=== PATIENT | female | born 2000 | race Caucasian/White ===

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

== ENCOUNTER 2019-04-02 19:16 | Outpatient (CLI) | payer BC ==
--- NOTE | 2019-04-02 23:57 | Ultrasound Report ---
Reason: PELVIC PAIN Procedure Date: 04/02/2019 Accession Number: [id number] / [id number] Procedure: US - Pelvic w/Transvaginal CPT Code: Final Report FULL RESULT: EXAM: PELVIC ULTRASOUND EXAM DATE: 04/02/2019 08:11 PM. CLINICAL HISTORY: PELVIC PAIN. COMPARISON: None. TECHNIQUE: Realtime transabdominal pelvic scan performed to identify the uterus and adnexa and as an overview of other pelvic structures, followed by transvaginal scan to provide greater detail of the uterus and adnexa, with static image documentation. FINDINGS: Uterus: 6.7 x 2.9 x 4 cm, volume 41.8 cc. Anteverted position. Normal overall size and echotexture. Masses: None. Endometrium: 2 mm. IUD in appropriate position within the endometrium. Cervix: Echogenic focus within the cervix could reflect a portion of the IUD strings. Nabothian cyst. Right Ovary: 3.1 x 2.7 x 2.6 cm, volume 11.1 cc. Normal echotexture and blood flow. Left Ovary: 3 x 2.3 x 2.9 cm, volume 10.2 cc. Normal echotexture and blood flow. Free Fluid: None. Other: None. IMPRESSION: IUD in appropriate position within the endometrium. RAD[facility]
== END 2019-04-02 19:17 | disposition home or self-care (01) ==
LOC: DI 19:16
PROVIDERS: ATTEND Physician Assistant Medical
DX: R10.2 Pelvic and perineal pain (principal)
CPT/HCPCS: 76830; 76856

== ENCOUNTER 2020-05-12 21:24 | Outpatient (CLI) | payer BC | END 2020-05-12 21:25 | disposition home or self-care (01) | LOC: COV 21:24 | PROVIDERS: ATTEND Family Medicine | DX: R05 Cough (principal); M79.10 Myalgia, unspecified site; R53.83 Other fatigue; R07.0 Pain in throat; R09.81 Nasal congestion; Z20.822 Contact with and (suspected) exposure to COVID-19 ==

== ENCOUNTER 2022-06-18 08:00 | Outpatient (CLI) | payer BC ==
[2022-06-18 19:42] LABS: CHLAMYDIA TRACHOMATIS DNA NEGATIVE (NEGATIVE); NEISSERIA GONORRHOEAE DNA NEGATIVE (NEGATIVE); TRICHOMONAS VAGINALIS DNA NEGATIVE (NEGATIVE)
== END 2022-06-18 23:59 | disposition home or self-care (01) ==
LOC: LAB 08:00
PROVIDERS: ATTEND Nurse Practitioner
DX: Z11.3 Encounter for screening for infections with a predominantly sexual mode of transmission (principal)
CPT/HCPCS: 87491; 87591; 87661